=== PATIENT | female | born 1955 | race Native Hawaiian/Other Pacific Islander ===

== ENCOUNTER 2017-10-03 08:41 | Outpatient (CLI) | payer BC ==
[~2017-10-03 08:41] MED LIST: ALPR0.2566 PO; ASA LOW STR81 MG PO; COZAAR25 MG PO; ESTRACE2 MG PO; FLUC150T PO; LUNESTA2 MG OR; TRIM800T12 PO; VALTREX1 GM PO; WELLBUTRIN150 MG PO; [UNRECOGNIZED DRUG - OTHER] IJ
== END 2017-10-03 19:07 | disposition home or self-care (01) ==
LOC: LAB 08:41
DX: L08.89 Other specified local infections of the skin and subcutaneous tissue (principal)
CPT/HCPCS: 87070; 87205

== ENCOUNTER 2019-01-15 09:51 | Outpatient (CLI) | payer BC | END 2019-01-15 21:28 | disposition home or self-care (01) | LOC: LAB 09:51 | DX: I10 Essential (primary) hypertension (principal); R19.7 Diarrhea, unspecified | CPT/HCPCS: 82272; 83630; 87015; 87045; 87324; 87328; 87329; 87449; 87507; 87899 ==

== ENCOUNTER 2020-09-06 14:01 | Outpatient (CLI) | payer BC | END 2020-09-06 23:05 | disposition home or self-care (01) | LOC: LAB 14:01 | PROVIDERS: ATTEND Internal Medicine | DX: L03.818 Cellulitis of other sites (principal) | CPT/HCPCS: 87070; 87205 ==

== ENCOUNTER 2021-04-10 09:37 | Outpatient (CLI) | payer BC ==
[2021-04-10 16:43] LABS: PLATELET COUNT 361 K/uL (152-353)
[2021-04-10 17:42] LABS: POTASSIUM 4.2 mmol/L (3.6-5.2)
== END 2021-04-10 19:11 | disposition home or self-care (01) ==
LOC: LAB 09:37 → RAD 09:37 → LAB 19:11
PROVIDERS: ATTEND Internal Medicine
DX: R04.2 Hemoptysis (principal); I10 Essential (primary) hypertension
CPT/HCPCS: 80053; 84439; 84443; 84550; 85027; 85610

== ENCOUNTER 2021-05-21 11:44 | Outpatient (CLI) | payer BC | END 2021-05-21 18:54 | disposition home or self-care (01) | LOC: RAD 11:44 | PROVIDERS: ATTEND Internal Medicine Sleep Medicine | DX: R04.2 Hemoptysis (principal) ==

== ENCOUNTER 2021-06-08 12:45 | Outpatient (CLI) | payer BC | END 2021-06-08 21:46 | disposition home or self-care (01) | LOC: CT 12:45 | PROVIDERS: ATTEND Internal Medicine Sleep Medicine | DX: R04.2 Hemoptysis (principal) ==

== ENCOUNTER 2021-11-12 14:30 | Outpatient (CLI) | payer BC | END 2021-11-12 19:37 | disposition home or self-care (01) | LOC: RAD 14:30 | PROVIDERS: ATTEND Internal Medicine | DX: M54.59 Other low back pain (principal); W19.XXXA Unspecified fall, initial encounter ==

== ENCOUNTER 2022-06-18 12:30 | Outpatient (CLI) | payer BC | END 2022-06-18 19:12 | disposition home or self-care (01) | LOC: CT 12:30 | PROVIDERS: ATTEND Nurse Practitioner Family | DX: F17.210 Nicotine dependence, cigarettes, uncomplicated (principal) ==